=== PATIENT | male | born 1955 | race Caucasian/White ===

== ENCOUNTER → 2017-05-27 | Outpatient (CLI) | payer OTHER | END | disposition home or self-care (01) | LOC: KCIC CT 13:36 | DX: S62.001D Unspecified fracture of navicular [scaphoid] bone of right wrist, subsequent encounter for fracture with routine healing (principal); M19.041 Primary osteoarthritis, right hand; M25.741 Osteophyte, right hand; X58.XXXD Exposure to other specified factors, subsequent encounter | CPT/HCPCS: 73200 ==

== ENCOUNTER → 2018-01-23 | Outpatient (CLI) | payer OTHER ==
[~2018-01-23] MED LIST: FEXO180T16 PO; LOSA1TAB25 PO; OMEP40CA5 PO; POTA99TA3 PO; TRAM50TA PO
--- NOTE | 2018-01-23 10:52 | KCIC ---
MRI Cervical Spine Without Contrast History: Radiculopathy, neck pain, crepitus, bilateral upper extremity radiculopathy Technique: Multiplanar, multi sequential noncontrast MR imaging was performed of the cervical spine. Comparison: February 29, 2016 Findings: Cervical vertebral body stature and AP alignment are maintained. Cervical cord caliber is within normal limits without new focal signal abnormality. There is similar small focus of T2 and STIR hyperintense signal of the left cord at C4-C5. There is no new abnormality of the cervical medullary junction. There is no significant marrow edema. There are multilevel posterior annular tears throughout cervical spine. There is overall mild degenerative disc disease C4-5 and C6-7, mild disc desiccation at other levels. C2-C3: Neural foramina and spinal canal are adequate. There is minimal uncovertebral degenerative change. C3-C4: There is again negligible disc osteophyte complex, central canal minimally narrowed to 8 to 9 mm. There is uncovertebral density change bilaterally, also bilateral facet degenerative change greater on the left. There is [id number] left and minimal right neural foramina compromise. C4-C5: There is minimal disc osteophyte complex and bulge. Central canal is minimally narrowed to about 9 to 10 mm. There is uncovertebral degenerative change greater on the right, also bilateral facet degenerative change. There is fairly severe right and moderate to severe left neural foramina compromise. C5-C6: There is bilateral facet degenerative change, minimal right uncovertebral degenerative change change. Spinal canal and left neural foramen are adequate, mild narrowing of the right neural foramen. C6-C7: There is buckling of the ligamentum flavum. There is again broad posterior bulge which is slightly more prominent. There is increased of ventral and dorsal subarachnoid space with contact of the ventral cord. Central canal is narrowed to about 7 mm, slightly greater. There is uncovertebral and facet degenerative change bilaterally. There is severe neural foramina compromise bilaterally greater on the left. C7-T1: There is bilateral facet degenerative change. Spinal canal and right neural foramen are adequate, mild narrowing of the left neural foramen. Impression: 1. There is spinal stenosis on the order of 7 mm at C6-7, posterior bulge at this level slightly more prominent than 2016 exam with increased effacement of ventral subarachnoid space, light contact of the ventral cord. There is mild spinal stenosis at C3-4 and C4-5 as described. 2. There is multilevel facet and uncovertebral degenerative change, resultant neural foramina compromise with more significant narrowing bilaterally at C4-5 and C6-7, to a lesser degree on the left at C3-4, other minimal narrowing as stated. 3. There is mild degenerative disc disease greatest C4-5 and C6-7. There is mild spondylosis. 4. There is a similar small focus of T2 and STIR signal of the left cord at C4-5 which may be due to sequela of mild myelomalacia. Electronically signed by: Kyle De MD (01/23/2018 10:48 AM) [email or web address]
== END | disposition home or self-care (01) ==
LOC: KCIC MRI 08:21
PROVIDERS: ATTEND Family Medicine
DX: M48.02 Spinal stenosis, cervical region (principal); M50.322 Other cervical disc degeneration at C5-C6 level; M50.323 Other cervical disc degeneration at C6-C7 level; M25.78 Osteophyte, vertebrae; M47.892 Other spondylosis, cervical region
CPT/HCPCS: 72141